=== PATIENT | female | born 1985 | race Caucasian/White ===

== ENCOUNTER → 2017-03-31 | Outpatient (CLI) | payer OTHER ==
[~2017-03-31] MED LIST: CLR10 PO; KETO10TA PO; PRENTAB26 PO; SNG10 PO; ZNTT/150 PO
== END | disposition home or self-care (01) ==
LOC: C.PAPS 14:26
PROVIDERS: ATTEND Physician Assistant
DX: Z12.4 Encounter for screening for malignant neoplasm of cervix (principal)

== ENCOUNTER → 2017-04-24 | Outpatient (CLI) | payer OTHER ==
[~2017-04-24] MED LIST changes: +RANI150T85 PO; -ZNTT/150 PO
== END | disposition home or self-care (01) ==
LOC: C.LAB1850 11:57
PROVIDERS: ATTEND Physician Assistant
DX: Z30.430 Encounter for insertion of intrauterine contraceptive device (principal); N91.2 Amenorrhea, unspecified

== ENCOUNTER 2021-01-08 01:46 | Inpatient (IN) ==
--- NOTE | 2021-01-08 02:28 | Anesthesiology Consultation ---
Date of Service January 08, 2021 Assessment & Plan (1) Encounter for pre-operative examination: Chart Review Chart Review: Acceptable Risk for Surgery and Patient NOT seen in Pre Admission Testing Consults Requested none History Surgery Operation Date: 01/08/21 03:00 Proposed Procedures p Section in LD(Bilateral) - Juan Diego Gann MD Height/Weight Height: 5 ft 3 in Weight: 124.284 kg Allergies Allergy/AdvReac Type Severity Reaction Status Date / Time Penicillins Allergy Severe UNKNOWN- Verified 01/04/21 14:15 A CHILD acetaminophen [From Tylenol] Allergy Unknown INCREASES Verified 01/04/21 14:16 LIVER ENZYMES latex AdvReac Mild REDNESS,SWELLING Verified 01/04/21 14:16 ON SKIN Medications Home Medications Medication Instructions Recorded Confirmed Last Taken famotidine 20 mg tablet (Pepcid) 10 mg PO BID 01/04/21 01/08/21 01/07/21 07:00 loratadine 10 mg tablet (Claritin) 10 mg PO HS 01/04/21 01/08/21 01/07/21 montelukast 10 mg tablet 10 mg PO HS 01/04/21 01/08/21 01/07/21 (Singulair) prenat.vits,lluvia,bmk-[id number]-ilgpf 1 tab PO HS 01/04/21 01/08/21 01/07/21 NPO Date Last Intake of Fluids: 01/08/21 Time Last Intake of Fluids: 01:30 Date Last Intake of Solids: 01/07/21 Time Last Intake of Solids: 23:00 Past Medical History Medical History Gestational proteinuria in third trimester History of chicken pox Scoliosis Past Family History Family History Other No known health problems Denies family history of Ovarian cancer Prostate cancer Breast cancer Colorectal cancer Past Surgical History Surgical History H/O section X 3 H/O hernia repair H/O oral surgery S/P cholecystectomy S/P wrist surgery Social History Smoking Status: Current every day smoker tobacco type: cigarettes Smoking cigarettes per day: 10 Hx Alcohol Use: No Hx Substance Use: No Physical Exam Vital Signs Last Vital Signs Temp 36.7 C 01/08/21 02:05 Resp 18 01/08/21 02:05
[2021-01-08] MEDS ORDERED: AZITHROMYCIN 500 MG in DEXTROSE 5% 250 ML IV SCH (02:30)
[2021-01-08] MEDS ORDERED: LACTATED RINGER'S 1,000 ML IV SCH ×3 (02:30→04:45)
[2021-01-08] MEDS ORDERED: CITRIC ACID/SODIUM CITRATE 15 ML UDC ONE (02:37)
--- NOTE | 2021-01-08 02:37 | History & Physical Report ---
Date of Service January 08, 2021 Assessment & Plan (1) History of delivery: Plan: 35yo at 38w5D presents with SROM with hx of LTCS x3. 1. Fetus: Cat 1/ Reactive 2. Labor: SROM. Early labor. Hx LTCS x3. consents reviewed and signed. Reviewed increased risk for complication due to repeat x4, and BMI>45. Declined BTL. Labs pending. 3. Vitals: Stable. (2) Obesity affecting in third trimester: (3) Multigravida of advanced maternal age: (4) SROM (spontaneous rupture of membranes): History of Present Illness Primary Care Provider: NO PCP 35yo at 38w5D presents with SROM. complicated by Hx LTCSx3, AMA, BMI >45. Denies any complications with prior c-sections. OB Labs: Blood Type O Positive 06/12/20 Antibody Screen NEGATIVE 06/12/20 Hemoglobin 14.0 g/dL (12.0-16.0) 10/30/20 Hematocrit 41.5 % (37-47) 10/30/20 Mean Corpuscular Volume 88.3 fL (80-100) 06/12/20 Platelet Count 313 K/uL (130-400) 06/12/20 Rubella IgG Antibody Immune (Immune) 06/12/20 Rapid Plasma Reagin Nonreactive (Nonreactive) 06/12/20 Hepatitis B Surface Antigen Neg (Neg) 06/12/20 HIV (1&2) Ab and P24 Ag, 4th Gener Neg (Neg) 06/12/20 Glucose 1 Hour 50 gm Load 90 mg/dl (70-130) 10/30/20 OB Optional Labs: Chlamydia trachomatis RNA NOT DETECTED (NOT DETECTED) 06/12/20 Neisseria gonorrhoeae RNA NOT DETECTED (NOT DETECTED) 06/12/20 Thyroid Stimulating Hormone (TSH) 0.969 uIu/ml (0.300-4.500) 04/26/20 Labs Reviewed: declines genetics--akh declines cf/sma--akh declined afp Allergies Allergy/AdvReac Type Severity Reaction Status Date / Time Penicillins Allergy Severe UNKNOWN- Verified 01/04/21 14:15 A CHILD acetaminophen [From Tylenol] Allergy Unknown INCREASES Verified 01/04/21 14:16 LIVER ENZYMES latex AdvReac Mild REDNESS,SWELLING Verified 01/04/21 14:16 ON SKIN Home Medications Medication Instructions Recorded Confirmed Type famotidine 20 mg tablet (Pepcid) 10 mg PO BID 01/04/21 01/08/21 History loratadine 10 mg tablet (Claritin) 10 mg PO HS 01/04/21 01/08/21 History montelukast 10 mg tablet 10 mg PO HS 01/04/21 01/08/21 History (Singulair) prenat.vits,lluvia,doj-zczh-[id number] 1 tab PO HS 01/04/21 01/08/21 History Patient History Medical History Gestational proteinuria in third trimester History of chicken pox Scoliosis Surgical History H/O section X 3 H/O hernia repair H/O oral surgery S/P cholecystectomy S/P wrist surgery Family History Other No known health problems Denies family history of Ovarian cancer Prostate cancer Breast cancer Colorectal cancer Social History Smoking Status: Current every day smoker Cigarettes Per Day: 10; Second Hand Exposure: No; Hx Alcohol Use: No Hx Substance Use: No Preferred Language: Romanian Communication Ability: Effective Clinical Lab Assistant Required: No Beliefs That Will Affect Care: None marital status: Single marital status details: Eric Huang (38) same number as patient. Current Living Situation: Family and Significant Other Current Living Situation Comment: Lives with boyfriend and 3 children, 1cat, and turtle. Children changes lit current occupational status: unemployed current occupation: Other Information That Helps Us Care for You: No Feels Safe at Home: Yes Assistive Devices: None Physical Exam Respiratory: normal respiratory effort, lungs clear to auscultation Cardiovascular: RRR, no murmur, no edema Gastrointestinal (Abdomen): Inspection/Auscultation: + abdominal edema Percussion/Palpation: abdomen soft; abdomen nontender, no guarding and abdomen not rigid Genitourinary: Manual OB Exam: + amniotic fluid (Grossly ruptured) clear OB Exam Monitor Tracing: + external FHT monitor used, + external uterine monitor used, + category I and + normal FHT variability; no category III, no early decelerations present, no late decelerations present and no variable decelerations Code Status & VTE Plan VTE Prophylaxis Plan VTE Prophylaxis will be ordered: No Coding Level of Care Code None Diagnoses History of delivery Z98.891 Obesity affecting in third trimester O99.213 Multigravida of advanced maternal age O09.529 SROM (spontaneous rupture of membranes)
[2021-01-08 02:41] LABS: Hematocrit (blood only) 39.4 % (37-47); Hemoglobin 14.1 g/dL (12.0-16.0); Mean Corpuscular Hemoglobin 30.8 pg (25-34); Mean Platelet Volume 10.9 fL (7.4-10.4); Platelet Count 198 K/uL (130-400); RDW Coefficient of Variation 13.9 % (11.5-14.5); RDW Standard Deviation 43.6 fL (36.4-46.3); Red Blood Count 4.58 M/uL (4.2-5.4); White Blood Count 13.23 K/uL (4.8-10.8)
[2021-01-08 02:42] LABS: Mean Corpuscular Hgb Conc 35.8 g/dL (32-36)
[2021-01-08] MEDS ORDERED: MoRPHine SULFATE PF 1 MG/ML 10 ML AMP/VIAL ONE (02:55)
[2021-01-08] MEDS ORDERED: fentaNYL citrate 100 MCG/2 ML VIAL ONE (02:56)
[2021-01-08] MEDS ORDERED: ePHEDrine sulfate 50 MG/ML SYR ONE (03:38)
[2021-01-08] MEDS ORDERED: PHENYLEPHRINE 100MCG/ML 5ML SYR ONE (03:38)
[2021-01-08] MEDS ORDERED: ONDANSETRON INJ 2 MG/ML 2 ML VIAL ONE (03:38)
[2021-01-08] MEDS ORDERED: NALOXONE HCL 0.4 MG/1 ML VIAL/CARP IV PRN (04:03)
[2021-01-08] MEDS ORDERED: LACTATED RINGER'S 500 ML IV PRN (04:03)
[2021-01-08] MEDS ORDERED: diphenhydrAMINE 50 MG/ML VIAL IV PRN ×2 (04:03→22:06)
[2021-01-08] MEDS ORDERED: NALOXONE HCL 0.08 MG in SYRINGE 1.8 ML IV PRN (04:03)
[2021-01-08] MEDS ORDERED: HYDROmorphone INJ 0.5 MG/0.5 ML SYR IV PRN (04:03)
[2021-01-08] MEDS ORDERED: ePHEDrine sulfate 50 MG/ML AMP IV PRN (04:03)
[2021-01-08] MEDS ORDERED: ONDANSETRON INJ 2 MG/ML 2 ML VIAL IV PRN ×2 (04:03→22:06)
[2021-01-08] MEDS ORDERED: MoRPHine SULFATE PF 1 MG/ML 10 ML AMP/VIAL INT SPINAL ONE (04:03)
[2021-01-08] MEDS ORDERED: NALOXONE HCL 1 MG in SODIUM CHLORIDE 0.9% 1000ML 1,000 ML IV PRN (04:03)
[2021-01-08] MEDS ORDERED: NALBUPHINE HCL INJ 10 MG/ML AMP IV PRN (04:03)
[2021-01-08] MEDS ORDERED: DC INTRASPINAL MORPHINE SCH (04:15)
[2021-01-08] MEDS ORDERED: NO NARCOTICS OR SEDATIVES SCH (04:15)
[2021-01-08] MEDS ORDERED: SODIUM CHLORIDE 0.9% 1000ML 1,000 ML IV SCH (04:15)
[2021-01-08] MEDS ORDERED: KETOROLAC 30 MG/ML VIAL ONE (04:31)
[2021-01-08] MEDS ORDERED: MAGNESIUM HYDROXIDE SUSP 30 ML UDC PO PRN (04:44)
[2021-01-08] MEDS ORDERED: SUPERCREAM 0.870% 15 GM JAR EXT PRN (04:44)
[2021-01-08] MEDS ORDERED: DIPHTHERIA/TETANUS/PERTUSSIS 0.5 ML SYR/VIAL IM ONE (04:44)
[2021-01-08] MEDS ORDERED: HYDROCORTISONE ACETATE 25 MG SUPP PR PRN (04:44)
[2021-01-08] MEDS ORDERED: BENZOCAINE 20% AER SPR 82.5 GM CAN EXT PRN (04:44)
[2021-01-08] MEDS ORDERED: SENNA 8.6 MG TAB PO PRN (04:44)
--- NOTE | 2021-01-08 04:44 | Post Operative Brief Note ---
PG Immediate Post Op with CF Date of Surgery January 08, 2021 Pre & Post Diagnosis Operation Date: 01/08/21 03:00 Pre-Op Diagnosis: 1.Early term 2.Spontaneous rupture of membranes 3.History of Post-Op Diagnosis: Same as preoperative I identified the patient and participated in the time-out.: Yes Procedure Operation Date: 01/08/21 03:00 Actual Procedures p Section in OR(Bilateral) - Juan Diego Gann MD Surgeon Juan Diego Gann MD Product Development Intern Dr Shea Estimated Blood Loss 650 Findings Consistent with Post-Op Diagnosis Specimens Specimen Description: 1. [facility] [place]21 @0347 2. Placenta-HOLD 3. Cord Blood Drains Patel Catheter OB Procedure charges OB Charges [id number]
--- NOTE | 2021-01-08 05:13 | Anesthesiology Progress Note ---
Date of Service January 08, 2021 Anesthesia Post Procedure Vital Signs Vital Signs: Temp Pulse Resp BP Pulse Ox 01/08/21 05:09 72 97 01/08/21 05:05 75 130/74 01/08/21 05:04 79 98 01/08/21 04:59 76 97 01/08/21 04:56 78 94 01/08/21 04:55 78 125/58 L 01/08/21 04:54 71 97 01/08/21 04:49 81 97 01/08/21 04:45 73 139/67 01/08/21 04:44 80 96 01/08/21 02:15 98 H 135/85 01/08/21 02:05 36.7 C 18 Transfer of Care Handoff Completed per policy Notes Mental Status: alert / awake / arousable and participated in evaluation Nausea / Vomiting: adequately controlled Pain: adequately controlled Airway Patency, RR, SpO2: stable & adequate BP & HR: stable & adequate Hydration State: stable & adequate Neuraxial Anesthesia: was administered and sensory block is resolving Anesthetic Complications: no major complications apparent and Pt Satisfied with anesthetic care
[2021-01-08] MEDS: OXYTOCIN 20 UNITS in LACTATED RINGER'S 1,000 ML IV SCH ×2 (05:23→14:06)
[2021-01-08] MEDS: DOCUSATE SODIUM 100 MG CAP PO SCH ×2 (08:40→21:11)
[2021-01-08] MEDS: FERROUS SULFATE 325 MG TAB PO SCH (08:40)
[2021-01-08] MEDS: PRENATAL VITAMIN 1 TAB PO SCH (08:40)
[2021-01-08] MEDS: SIMETHICONE 80 MG CHEW PO SCH ×4 (08:40→21:11)
[2021-01-08] MEDS: KETOROLAC 30 MG/ML VIAL IV PRN ×2 (10:47→18:57)
[2021-01-08] MEDS ORDERED: oxyCODONE/ACETAMINOPHEN 5mg/325mg TAB PO PRN (22:06)
[2021-01-08] MEDS ORDERED: diphenhydrAMINE Capsule 25 MG CAP PO PRN (22:06)
[2021-01-08] MEDS ORDERED: PROMETHAZINE HCL 25 MG in SODIUM CHLORIDE 0.9% 50 ML IV PRN (22:06)
[2021-01-08] MEDS ORDERED: KETOROLAC 30 MG/ML VIAL IV PRN (22:06)
[2021-01-09] MEDS: IBUPROFEN 600 MG TAB PO PRN ×4 (00:10→13:26)
--- NOTE | 2021-01-09 05:46 | Obstetrical Progress Note ---
Date of Service <Gildardo Donnellybartoloangela - Last Filed: 01/09/21 07:19> January 09, 2021 Assessment & Plan <Gildardo Ocampo - Last Filed: 01/09/21 07:19> (1) Encounter for care and examination after delivery: 35 yo post op day 1 from , doing well. -Continue routine post care. - vital sings reviewed and WNL. (Tmax 36.9) -Blood type O+, GBS -, Rubella Immune. -Encourage ambulation, monitor and control pain with Motrin, tylenol PRN, resume regular diet, monitor lochia. -encourage breast feeding -hemoglobin 14.1 -Discussed discharge with patient, patient will most likely stay until tomorrow. <Olivia Shea MD - Last Filed: 01/09/21 07:19> (1) Encounter for care and examination after delivery: Subjective <Gildardo Mckennarolando - Last Filed: 01/09/21 07:19> Ambulation: ambulating normally Voiding: no voiding problems Passing Gas:: No (Feels gas but dissipates. ) Diet Tolerance:: regular diet Lochia:: Small Feeding Type:: breast feeding Current Pain Level(1-10): 0 Review of Systems Denies fever, chills, sweats Denies shortness of breath, difficulty breathing, chest pain, palpitations, chest pressure. Denies breast pain. Denies dysuria. Denies headache or changes in vision +Lower abdominal discomfort Physical Exam <Gildardo Mckennaaspenangela - Last Filed: 01/09/21 07:19> General: Alert, oriented. No acute distress. Cardiac: Regular rate and rhythm, no murmurs/rubs/gallops. Respiratory: Clear to auscultation bilaterally a/p, no wheezes/rales/rhonchi. No increased work of breathing. Symmetrical chest rise. No respiratory distress. Abdomen: Soft, tender to palpation at lower quadrants, obese. Bowel sounds present. Uterus: Uterine fundus firm, palpable 3 cm below umbilicus. Surgical wound vac and pad appears clean. Lower Extremities: No lower extremity edema or swelling. No deep calf pain. Samson's negative bilaterally Results & Data ([facility]) <Gildardolanden Ocampo DO - Last Filed: 01/09/21 07:19> Vital Signs (Past 12 Hours) Vital Signs Temp Pulse Resp BP Pulse Ox 01/09/21 00:20 36.5 C 76 20 115/75 01/08/21 22:04 18 97 01/08/21 21:10 16 96 01/08/21 20:00 18 96 01/08/21 19:05 36.7 C 76 18 127/73 95 01/08/21 19:00 18 96 01/08/21 18:00 18 96 <Olivia Shea MD - Last Filed: 01/09/21 07:19> Co-Signing Physician Notes Resident Physician Supervision Note: I interviewed and examined the patient. Discussed with Dr. Ocampo and agree with findings and plan as documented in the note. Any exceptions or clarifications are listed here: [ ] Documented By: Olivia Shea MD, FACOG Resident Activity Tracking <Gildardo Ocampo DO - Last Filed: 01/09/21 07:19> Resident Involvement: Resident Care Provided Care Provided: OB Delivery
[2021-01-09 07:32] LABS: Hematocrit (blood only) 35.3 % (37-47); Hemoglobin 12.1 g/dL (12.0-16.0); Mean Corpuscular Hemoglobin 30.2 pg (25-34); Mean Corpuscular Hgb Conc 34.3 g/dL (32-36); Mean Platelet Volume 10.5 fL (7.4-10.4); Platelet Count 185 K/uL (130-400); RDW Coefficient of Variation 13.9 % (11.5-14.5); RDW Standard Deviation 44.8 fL (36.4-46.3); Red Blood Count 4.01 M/uL (4.2-5.4)
[2021-01-09 08:06] LABS: Basophils # (auto) 0.02 K/uL (0-0.2); Basophils % (auto) 0.1 %; Eosinophils # (auto) 0.21 K/uL (0-0.5); Eosinophils % (auto) 1.4 %; Immature Granulocytes # (auto) 0.08 K/uL (0.00-0.02); Immature Granulocytes % (auto) 0.6 %; Lymphocytes # (auto) 2.95 K/uL (1.2-3.4); Lymphocytes % (auto) 20.3 %; Monocytes # (auto) 0.92 K/uL (0.11-0.59); Monocytes % (auto) 6.3 %; Neutrophils # (auto) 10.32 K/uL (1.4-6.5); Neutrophils % (auto) 71.3 %
[2021-01-09] MEDS: PRENATAL VITAMIN 1 TAB PO SCH (09:16)
[2021-01-09] MEDS: SIMETHICONE 80 MG CHEW PO SCH ×2 (09:16→13:26)
[2021-01-09] MEDS: DOCUSATE SODIUM 100 MG CAP PO SCH (09:16)
[2021-01-09] MEDS: FERROUS SULFATE 325 MG TAB PO SCH (09:16)
--- NOTE | 2021-01-09 17:23 | Obstetrical Progress Note ---
Date of Service January 09, 2021 Assessment & Plan Admission and Anticipated Discharge Date Admission Date: January 08, 2021 Subjective Patient desires discharge home. Stable status. She was instructed by surgeon who placed NELLY dressing to take it off 7 days after surgery, and to present to office if any bleeding, discharge, redness of wound. Reviewed /postop instructions. Declines Rx pain meds. Results & Data ([facility]) Vital Signs (Past 12 Hours) Vital Signs Temp Pulse Resp BP BP Pulse Ox 01/09/21 15:20 36.7 C 83 16 128/80 96 01/09/21 12:09 36.5 C 76 18 123/83 97 01/09/21 08:40 36.6 C 79 18 124/78 96 PG Care Time/CCT Total # of Minutes Spent Total Time Spent with Patient: Total time spent is greater than 50% in coordination of care (as documented) at patient's floor/unit and/or counseling patient: Coding Level of Care Code None
[2021-01-09] MEDS ORDERED: bisacodyL 5 MG TABEC PO SCH (20:00)
[2021-01-10] MEDS ORDERED: bisacodyL 10 MG SUPP PR PRN (04:44)
--- NOTE | 2021-01-18 10:26 | Operative Report (OR) ---
DATE OF PROCEDURE: 01/08/2021 PROCEDURE: Repeat low transverse section. PREOPERATIVE DIAGNOSES: 1. Single intrauterine at 38 weeks 5 days gestational age. 2. History of x3. 3. BMI greater than 45. 4. Advanced maternal age. 5. Spontaneous rupture of membranes. POSTOPERATIVE DIAGNOSES: 1. Single intrauterine at 38 weeks 5 days gestational age. 2. History of x3. 3. BMI greater than 45. 4. Advanced maternal age. 5. Spontaneous rupture of membranes. 6. Status post procedure. ESTIMATED BLOOD LOSS: 650 mL. DRAINS: Patel catheter. FLUIDS: Continuous lactated Ringer. URINE OUTPUT: Not measured. SURGEON: Juan Diego Gann MD SLIP BRIDGE OPERATOR: Olivia Shea MD DESCRIPTION OF PROCEDURE: The patient was taken to the operating room after consents were assured. Upon presentation, she was properly identified. Spinal anesthesia was obtained without difficulty. The patient was then prepped and draped in normal sterile fashion. Preprocedural timeout was perform ed, after which a Pfannenstiel incision was made with a knife and this was carried down to the underl mita fascia with the Bovie. The fascia was then noted to have significant scar tissue. An incision was made at the midline for the fascia and then was extended laterally in each direction with pickups and Rooney scissors. The superior aspect of the fascia was grasped with Kochers x2, elevated off the underlying rectus muscles using blunt dissection and Rooney scissors. The inferior aspect of the fasci a was grasped with Kochers x2, elevated off the underlying rectus muscles using blunt dissection and Rooney scissors. There was noted to be a midline defect, which was then entered bluntly and a sweep of the abdomen was notable for no significant internal adhesions. The abdomen was then placed on stret ch. An Alex retractor was placed and adequate room for delivery of the was ensured. A maciej dder flap was created. A low transverse uterine incision was then made with a knife and the uterine cavity was then entered bluntly and placed on stretch to provide adequate room for delivery. Head of the was noted to be in cephalic position, delivered through the hysterotomy without difficul ty, body and shoulders quickly followed. The cord was double clamped and cut. taken over to the waiting nursery staff for evaluation. Cord blood was obtained. Attention was then turned to isidro of the placenta, which was delivered intact with 3-vessel cord, gentle cord traction. The nichole meir was exteriorized, wrapped in wet lap. Several passes were made to remove any remaining membranes with a dry lap. The hysterotomy was then reapproximated with 0 Vicryl in continuous running locked stitch. A second imbricating layer was performed. Uterus was noted to be hemostatic. The uterus an d ovaries were noted to be normal appearing on inspection and the uterus was returned to maternal abd omen. Right and left pericolic gutters were cleaned of clots and debris. The uterus was reinspected and noted to be hemostatic. The space of Retzius was also noted to be hemostatic. The subcutaneous muscle and fascial layers were inspected and noted to be hemostatic. The fascial layers were reappr oximated with 0 Vicryl starting at each lateral apices and continued to the midline. The subcutaneou s layers were reapproximated with 2-0 plain. The skin layers were reapproximated with 3-0 Vicryl wit h a Bj needle. A NELLY dressing was placed on top. Needle, sponge, and instrument counts were cor rect at the completion of the case. Both mother and were stable in the immediate post-delive ry period. Job ID: [id number]
--- NOTE | 2021-01-18 12:32 | Discharge Summary (DS) ---
DATE OF ADMISSION: 01/08/2021. DATE OF DISCHARGE: 01/09/2021. HOSPITAL COURSE: The patient was admitted for spontaneous rupture of membranes at 38 weeks 5 days ge stational age. She underwent a repeat low transverse section without complication. The pat ient remained in-house until late afternoon of postoperative day #1 and at that time was meeting all criteria for discharge and was discharged home in stable condition. The patient was provided both wr itten and verbal discharge instructions with planned followup at 6 weeks unless complicati ons arise and at that point she would be recommended to contact for an earlier visit. Job ID: [id number]
== END 2021-01-09 18:15 | disposition home or self-care (01) | DRG 788 ==
LOC: OPB 01:46 → 4S1 01:48 → 4S2 08:01